=== PATIENT | female | born 1945 | race African-American/Black ===

== ENCOUNTER 2018-10-20 11:07 | Emergency (ER) | payer OTHER ==
[~2018-10-20] VITALS: Ht 172.7 cm; Wt 73.0 kg
[2018-10-20] MEDS ORDERED: LABETALOL 5MG/ML SYR 20 MG/4 ML SYRINGE IV ONE ×3 (11:15→15:45)
[2018-10-20] MEDS ORDERED: IOHEXOL-350 100 ML BOTTLE ONE (11:22)
[2018-10-20 11:30] LABS: HEMATOCRIT. 42.7 % (36.0-48.0); HEMOGLOBIN. 14.1 g/dL (12.0-16.0); MEAN CORPUSCULAR HEMOGLOBIN 29.8 pg (28.0-32.0); MEAN PLATELET VOLUME 8.9 fl (7.4-10.4); PLATELET 198 x1000/uL (130-400); RED BLOOD CELL COUNT 4.74 mill/uL (4.2-5.4); RED CELL DISTRIBUTION WIDTH 13.8 % (11.6-14.6)
[2018-10-20 11:37] LABS: CHLORIDE 106 mEq/L (98-107)
[2018-10-20 11:39] LABS: PARTIAL THROMBOPLASTIN TIME 23.3 sec (23.4-31.0); PROTHROMBIN TIME 10.3 sec (9.6-11.0)
[2018-10-20 11:46] LABS: LDL CHOLESTEROL 133 mg/dL (5-100)
[2018-10-20 11:55] LABS: CREATINE KINASE 490 IU/L (26-192)
[2018-10-20] MEDS ORDERED: ASPIRIN 81MG TABLET PO ONE (12:30)
[2018-10-20 12:43] LABS: PLATELET ESTIMATE NORMAL
[2018-10-20 15:38] VITALS: BP 205/102
== END 2018-10-20 16:03 | disposition short-term general hospital (02) ==
LOC: ER 11:07 → CANBEDREQ 19:13
DX: G45.9 Transient cerebral ischemic attack, unspecified (principal); I16.9 Hypertensive crisis, unspecified; I67.1 Cerebral aneurysm, nonruptured; Z91.14 Patient's other noncompliance with medication regimen
CPT/HCPCS: 36415; 70450; 70496; 71045; 80053; 82550; 82962; 83721; 83735; 83880; 84484; 85025; 85610; 85730; 93005; 96374; 96376; 99291; J3490; Q9967; Z7610